=== PATIENT | male | born 1975 | race African-American/Black ===

== ENCOUNTER 2017-03-07 22:53 | Emergency (ER) | payer MEDICARE, MEDICAID ==
[~2017-03-07] VITALS: Ht 167.6 cm; Wt 82.0 kg
[2017-03-07] MEDS ORDERED: CARVEDILOL 6.25 MG TABLET PO ONE (23:45)
[2017-03-07] MEDS ORDERED: FUROSEMIDE 40MG/4ML VIAL IVP ONE (23:45)
[2017-03-08] MEDS ORDERED: CARVEDILOL 6.25 MG TABLET PO NR (00:15)
[2017-03-08 00:36] LABS: BASOPHILS % 1.3 % (0.0-2.0); EOSINOPHILS % 1.3 % (0.0-5.0); HEMATOCRIT. 41.8 % (42.0-52.0); HEMOGLOBIN. 13.4 g/dL (14.0-18.0); LYMPHOCYTES % 42.8 % (20.0-50.0); MEAN CORPUSCULAR HEMOGLOBIN 24.4 pg (28.0-32.0); MEAN PLATELET VOLUME 12.4 fl (7.4-10.4); MONOCYTES % 7.9 % (2.0-8.0); NEUTROPHILS % 46.7 % (40.0-76.0); PLATELET 156 x1000/uL (130-400); RED CELL DISTRIBUTION WIDTH 16.2 % (11.6-14.6)
[2017-03-08 00:49] LABS: CARBON DIOXIDE 27 mEq/L (21-32); CHLORIDE 101 mEq/L (98-107); TROPONIN I 0.03 ng/mL (0.00-0.04)
[2017-03-08 05:57] VITALS: BP 105/62
== END 2017-03-08 06:05 | disposition home or self-care (01) ==
LOC: ER 23:04
DX: I11.0 Hypertensive heart disease with heart failure (principal); I50.9 Heart failure, unspecified; F17.200 Nicotine dependence, unspecified, uncomplicated; I25.2 Old myocardial infarction; Z88.0 Allergy status to penicillin; Z88.2 Allergy status to sulfonamides; Z88.5 Allergy status to narcotic agent
CPT/HCPCS: 36415; 71010; 80053; 83880; 84484; 85025; 93005; 96374; 99285; J1940